=== PATIENT | male | born 1945 | race Caucasian/White ===

== ENCOUNTER 2025-01-11 21:24 | Inpatient (IN) | payer OTHER, MEDICARE ==
--- NOTE | 2025-01-11 22:00 | ED ---
General Adult HPI - General Chief complaint: Shortness of Breath Stated complaint: Chest Pain Time Seen by Provider: 01/11/25 21:34 Source: patient, EMS Mode of arrival: EMS Limitations: no limitations - History of Present Illness Initial comments: Patient is a 79-year-old male past medical history atrial fibrillation on Eliquis, COPD transferred from [facility] due to shortness of breath. He had presented there originally for 2 weeks of worsening short of breath, acutely worsening over the last 4 days. He endorses a cough productive of clear sputum without hemoptysis. He states he feels like this when he goes into atrial fibrillation however he does not feel palpitations or know when he is in A-fib. Patient had 5 episodes of dizziness today with near syncope which ultimately caused him to present to the ER. Patient denies any chest pain, fevers or chills. Endorses exertional dyspnea and chest congestion. Denies lower extremity swelling. Denies abdominal pain, nausea or vomiting. Endorses diarrhea and black tarry stools without gross blood in his stool. He does currently take Eliquis due to history of A-fib. He states he typically wears CPAP at night on 3 L oxygen however he states he is wearing this during the day due to persistent shortness of breath over the last 2 weeks. - Related Data Home Medications Medication Instructions Recorded Confirmed Albuterol Sulfate [Albuterol 2 puff INHALATION RT-QID PRN 01/12/25 01/12/25 Sulfate Hfa] Apixaban [Eliquis] 5 mg PO BID 01/12/25 01/12/25 Ascorbic Acid [Vitamin C] 500 mg PO BID 01/12/25 01/12/25 Atorvastatin [Lipitor] 40 mg PO DAILY 01/12/25 01/12/25 Cyanocobalamin (Vitamin B-12) 1,000 mcg PO DAILY 01/12/25 01/12/25 [Vitamin B-12] Diclofenac Sodium [Diclofenac 2 gm TOPICAL QID 01/12/25 01/12/25 Sodium 1%] Docusate [Colace] 100 mg PO DAILY 01/12/25 01/12/25 Losartan [Cozaar] 50 mg PO DAILY 01/12/25 01/12/25 Mometasone/Formoterol [Dulera 100 2 puff INHALATION RT-BID 01/12/25 01/12/25 Mcg-5 Mcg Inhaler] Pantoprazole [Protonix] 40 mg PO BID 01/12/25 01/12/25 Propylene Glycol/Peg 400/Pf 1 drop BOTH EYES BID 01/12/25 01/12/25 [Systane 0.3-0.4% Ophth Dropperette] Sildenafil Citrate [Viagra] 100 mg PO DAILY PRN 01/12/25 01/12/25 Tiotropium 2.5 Mcg/Puff [Spiriva 2 puff INHALATION RT-DAILY 01/12/25 01/12/25 Respimat 2.5 Mcg] Triamcinolone 0.025% Cream 1 applic TOPICAL DAILY PRN 01/12/25 01/12/25 [Kenalog 0.025% Cream] cilostazoL [Pletal] 100 mg PO BID 01/12/25 01/12/25 dilTIAZem HCL 30 mg PO BID 01/12/25 01/12/25 guaiFENesin 400 mg PO BID PRN 01/12/25 01/12/25 Previous Rx's Medication Instructions Recorded Metoprolol Tartrate [Lopressor] 50 mg PO BID #60 tab 01/15/25 Allergies Allergy/AdvReac Type Severity Reaction Status Date / Time [id number] Reductase Allergy Nausea & Verified 01/12/25 09:41 Inhibitor Vomiting shellfish derived [Shellfish] AdvReac Anaphylaxis Verified 01/12/25 09:41 Review of Systems ROS Statement: Those systems with pertinent positive or pertinent negative responses have been documented in the HPI. ROS Other: All systems not noted in ROS Statement are negative. Past Medical History Past Medical History: Atrial Fibrillation, Cancer, COPD, Hyperlipidemia, Hypertension Additional Past Medical History / Comment(s): PAD History of Any Multi-Drug Resistant Organisms: None Reported Additional Past Surgical History / Comment(s): Lobectomy 2010 Past Psychological History: No Psychological Hx Reported Smoking Status: Former smoker Past Alcohol Use History: Occasional Past Drug Use History: None Reported General Exam - General Exam Comments Initial Comments: PE: CONSTITUTIONAL: No apparent distress, well appearing SKIN: Warm, dry, no jaundice, hives or petechiae EYES: Pupils are equally round, extraocular movements intact without nystagmus, clear conjunctiva, non-icteric sclera HENT: Normocephalic, atraumatic, moist mucus membranes, oropharynx clear without exudates NECK: , Full range of motion, normal appearance PULMONARY: Rhonchi in the left upper lung field otherwise clear to auscultation without wheezes, normal excursion, no accessory muscle use and no stridor CARDIOVASCULAR: Normal rate, irregularly irregular rate and rhythm, normal S1 and S2. No appreciated murmurs, rubs or gallops. Strong radial pulses with intact distal perfusion. No lower extremity edema GASTROINTESTINAL: Soft, active bowel sounds throughout, non-tender, non- distended, no palpable masses, no rebound or guarding. No hepatosplenomegaly rectal exam was performed with Tom patient care partner at bedside, showed no visible hemorrhoids or masses on AMBER MUSCULOSKELETAL: Extremities have no gross deformity, no edema, redness, or swelling. No calf swelling NEUROLOGIC:_a/o x 3, GCS 15, normal mentation and speech. Moves all extremities x 4 without motor or sensory deficit PSYCHIATRIC:_normal mood and affect, thought process is clear and linear Limitations: no limitations Course Vital Signs 01/11/25 01/11/25 01/12/25 21:36 23:08 01:00 Temperature 97.8 F Pulse Rate 133 H 81 74 Respiratory 17 18 18 Rate Blood Pressure 154/84 136/92 134/73 O2 Sat by Pulse 92 L 92 L 91 L Oximetry 01/12/25 01/12/25 01/12/25 02:02 03:14 03:26 Temperature Pulse Rate 67 73 78 Respiratory 17 Rate Blood Pressure 130/74 O2 Sat by Pulse 91 L Oximetry 01/12/25 01/12/25 01/12/25 06:00 07:36 09:21 Temperature Pulse Rate 101 H 88 96 Respiratory 17 22 22 Rate Blood Pressure 123/78 116/72 109/74 O2 Sat by Pulse 91 L 95 98 Oximetry 01/12/25 01/12/25 01/12/25 09:51 09:54 09:59 Temperature Pulse Rate 88 91 Respiratory Rate Blood Pressure O2 Sat by Pulse 98 Oximetry 01/12/25 01/12/25 01/12/25 14:40 15:45 15:57 Temperature Pulse Rate 79 70 79 Respiratory 18 Rate Blood Pressure 124/70 O2 Sat by Pulse 93 L Oximetry 01/12/25 01/12/25 01/12/25 16:00 17:00 18:00 Temperature Pulse Rate 100 100 100 Respiratory 18 18 18 Rate Blood Pressure 110/72 109/82 117/83 O2 Sat by Pulse 93 L 92 L 93 L Oximetry 01/12/25 01/12/25 19:00 20:48 Temperature Pulse Rate 86 86 Respiratory 18 18 Rate Blood Pressure 112/67 98/71 O2 Sat by Pulse 94 L 94 L Oximetry EKG Findings - EKG Comments: EKG Findings:: Atrial fibrillation, rate 80 bpm, intervals within acceptable limits, normal axis, no significant ST elevations or depressions, PVC present Medical Decision Making - Medical Decision Making Was pt. sent in by a medical professional or institution (, PA, ROAD MARKER, urgent care, hospital, or custodial...) When possible be specific @ -Transferred from [facility] Did you speak to anyone other than the patient for history (EMS, parent, family, police, friend...)? What history was obtained from this source @ -No Did you review nursing and triage notes (agree or disagree)? Why? @ -I reviewed and agree with nursing and triage notes- pt sent from [facility] for management a fib rvr Were old charts reviewed (outside hosp., previous admission, EMS record, old EKG, old radiological studies, urgent care reports/EKG's, custodial records)? Report findings @ -Medical records reviewed-Reviewed paperwork from transferring facility, patient received a 10 mg Cardizem bolus, 20 mg of potassium, 2 g magnesium, 1 do se of 4.5 mh Zosyn, and 10 mEq IV potassium. Reviewed EKG from transferring facility, showed patient in A-fib with RVR with heart rate 104 and PVCs patient's labs showed a leukocytosis white blood cell count 11.62, creatinine 1.08, potassium 3.3, magnesium 1.5, lactic of 1.4 BNP 1414 troponin 20.35, was a high-sensitivity troponin so was not considered elevated, CT angiogram of the chest did not show any PE, did note severe emphysema, pleural-based nodularity in the apex of the right lung measuring 3.5 x 1.7 x 1.6 cm, consolidation compressive atelectasis in the posterior aspect of the right lung with nodule with irregular margins, of left upper marked measuring left upper lobe measuring 1.7 x 1.3 x 1 power centimeters, ill-defined area of tree-in-bud type infiltration which may reflect acute pneumonitis in the left upper lobe, no pulmonary embolism Differential Diagnosis (chest pain, altered mental status, abdominal pain women, abdominal pain men, vaginal bleeding, weakness, fever, dyspnea, syncope, headache, dizziness, GI bleed, back pain, seizure, CVA, palpatations, mental health, musculoskeletal)? @Differential Dyspnea: Coronary syndrome, arrhythmia, tamponade, asthma, COPD, pulmonary embolism, pneumonia, pneumothorax, pulmonary effusion, anaphylaxis, diabetic ketoacidosis, flailed chest, pulmonary contusion, diaphragmatic rupture, anemia, neuromuscular, this is not meant to be an all-inclusive list. EKG interpreted by me (3pts min.). @ -As above X-rays interpreted by me (1pt min.). @ -None done CT interpreted by me (1pt min.). @ -None done U/S interpreted by me (1pt. min.). @ -None done What testing was considered but not performed or refused? (CT, X-rays, U/S, labs)? Why? @ -None What meds were considered but not given or refused? Why? @ additional weight based cardizem bolus was considered however pt's HR remained controlled on cardizem gtt Did you discuss the management of the patient with other professionals (professionals i.e. , PA, ROAD MARKER, lab, RT, psych nurse, social sciences research scientist, locket maker, teacher, structural engineering drafting officer, case making machine operator)? Give summary @ -No Was smoking cessation discussed for >3mins.? @ -No Was critical care preformed (if so, how long)? @ -No Were there social determinants of health that impacted care today? How? (Homelessness, low income, unemployed, alcoholism, drug addiction, transportation, low edu. Level, literacy, decrease access to med. care, residential, rehab)? @ -No Was there de-escalation of care discussed even if they declined (Discuss DNR or withdrawal of care, Hospice)? @ -No What co-morbidities impacted this encounter? (DM, HTN, Smoking, COPD, CAD, Cancer, CVA, ARF, Chemo, Hep., AIDS, mental health diagnosis, sleep apnea, morbi d obesity)? @Atrial fibrillation on Eliquis, COPD Was patient admitted / discharged? Hospital course, mention meds given and route, prescriptions, significant lab abnormalities, going to OR and other pertinent info. @Admission- 79-year-old gentleman presenting today as a transfer from [facility] for episodes of dizziness and shortness of breath, was found to be in intermittent A-fib RVR was given a Cardizem bolus and transferred here. On arrival patient's heart rate is between the 80s and 90s, rate is overall controlled though intermittently during conversation does briefly go into the 120s however this is not sustained. He is in A-fib. Pulse ox on room air was down to 88% with conversation. He is currently resting comfortably on 3 L oxygen nasal cannula. Of note this was not noted in transferring paperwork however patient has had a week of dark tarry stools. Hemoccult will be ordered. Rectal exam was performed and occult blood sent. I did review labs and imaging report from transferring facility, significant findings as noted above. Given patient's rate is overall controlled we will start him on Cardizem infusion. Will add Cardizem bolus if he has sustained episodes of tachycardia. Anticipate admission. Pt agreeable with POC. Occult blood negative, hgb wnl, troponin nonelevated Case discussed with Dr. Armenta, who kindly accepted pt for admission. Undiagnosed new problem with uncertain prognosis? @ -No Drug Therapy requiring intensive monitoring for toxicity (Heparin, Nitro, Insulin, Cardizem)? @ -No Were any procedures done? @ -No Diagnosis/symptom? COPD exacerbation, atrial fibrillation Acute, or Chronic, or Acute on Chronic? @acute Uncomplicated (without systemic symptoms) or Complicated (systemic symptoms)? @ -[complicated Side effects of treatment? @ -No Exacerbation, Progression, or Severe Exacerbation? @ -No Poses a threat to life or bodily function? How? (Chest pain, USA, SC, pneumonia, PE, COPD, DKA, ARF, appy, cholecystitis, CVA, Diverticulitis, Homicidal, Suicidal, threat to staff... and all critical care pts) @potentially - Lab Data Result diagrams: 01/15/25 05:02 01/15/25 05:02 Lab Results 01/11/25 01/11/25 01/11/25 Range/Units 22:10 22:43 22:43 WBC 10.19 H (4.50-10.00) 10*3/uL RBC 4.63 (4.40-5.60) 10*6/uL Hgb 13.9 (13.0-17.0) g/dL Hct 40.6 (39.6-50.0) % MCV 87.7 (80.0-97.0) fL MCH 30.0 (27.0-32.0) pg MCHC 34.2 (32.0-37.0) g/dL Plt Count 432 (140-440) 10*3/uL MPV 8.8 L (9.5-12.2) fL Immature Gran % (Auto) 1.8 % Neutrophils % 77.0 % Lymphocytes % 10.2 % Monocytes % 7.6 % Eosinophils % 3.1 % Basophils % 0.3 % Immature Gran # 0.18 H (0.00-0.04) 10*3/uL Neutrophils # 7.85 H (1.80-7.70) 10*3/uL Lymphocytes # 1.04 (0.90-5.00) 10*3/uL Monocytes # 0.77 (0.20-1.00) 10*3/uL Eosinophils # 0.32 (0.04-0.35) 10*3/uL Basophils # 0.03 (0.00-0.10) 10*3/uL PT 12.0 (10.0-12.5) sec INR 1.1 (<1.2) APTT 27.3 (22.0-30.0) sec Sodium (137-145) mmol/L Potassium (3.5-5.1) mmol/L Chloride (98-107) mmol/L Carbon Dioxide (22-30) mmol/L Anion Gap mmol/L BUN (9-20) mg/dL Creatinine (0.66-1.25) mg/dL Est GFR (CKD-EPI)AfAm (>60 ml/min/1.73 sqM) Est GFR (CKD-EPI)NonAf (>60 ml/min/1.73 sqM) Glucose (74-99) mg/dL Calcium (8.4-10.2) mg/dL Magnesium (1.6-2.3) mg/dL Total Bilirubin (0.2-1.3) mg/dL AST (17-59) U/L ALT (4-49) U/L Alkaline Phosphatase (38-126) U/L Troponin I (0.000-0.034) ng/mL NT-Pro-B Natriuret Pep pg/mL Total Protein (6.3-8.2) g/dL Albumin (3.5-5.0) g/dL Stool Occult Blood Negative (Negative) 01/11/25 01/11/25 Range/Units 22:43 22:43 WBC (4.50-10.00) 10*3/uL RBC (4.40-5.60) 10*6/uL Hgb (13.0-17.0) g/dL Hct (39.6-50.0) % MCV (80.0-97.0) fL MCH (27.0-32.0) pg MCHC (32.0-37.0) g/dL Plt Count (140-440) 10*3/uL MPV (9.5-12.2) fL Immature Gran % (Auto) % Neutrophils % % Lymphocytes % % Monocytes % % Eosinophils % % Basophils % % Immature Gran # (0.00-0.04) 10*3/uL Neutrophils # (1.80-7.70) 10*3/uL Lymphocytes # (0.90-5.00) 10*3/uL Monocytes # (0.20-1.00) 10*3/uL Eosinophils # (0.04-0.35) 10*3/uL Basophils # (0.00-0.10) 10*3/uL PT (10.0-12.5) sec INR (<1.2) APTT (22.0-30.0) sec Sodium 140 (137-145) mmol/L Potassium 3.7 (3.5-5.1) mmol/L Chloride 106 (98-107) mmol/L Carbon Dioxide 23 (22-30) mmol/L Anion Gap 11 mmol/L BUN 15 (9-20) mg/dL Creatinine 0.95 (0.66-1.25) mg/dL Est GFR (CKD-EPI)AfAm 89 (>60 ml/min/1.73 sqM) Est GFR (CKD-EPI)NonAf 77 (>60 ml/min/1.73 sqM) Glucose 87 (74-99) mg/dL Calcium 9.5 (8.4-10.2) mg/dL Magnesium 2.2 (1.6-2.3) mg/dL Total Bilirubin 0.6 (0.2-1.3) mg/dL AST 21 (17-59) U/L ALT 18 (4-49) U/L Alkaline Phosphatase 159 H (38-126) U/L Troponin I <0.012 (0.000-0.034) ng/mL NT-Pro-B Natriuret Pep 1160 pg/mL Total Protein 6.4 (6.3-8.2) g/dL Albumin 3.6 (3.5-5.0) g/dL Stool Occult Blood (Negative) Disposition Clinical Impression: Atrial fibrillation with rapid ventricular response, Acute on chronic hypoxic respiratory failure, Community acquired pneumonia Disposition: ADMITTED IP TO THIS HOSP Condition: Stable
[2025-01-11 22:49] LABS: Basophils # (A) 0.03 10*3/uL (0.00-0.10); Basophils % (A) 0.3 %; Eosinophils # (A) 0.32 10*3/uL (0.04-0.35); Eosinophils % (A) 3.1 %; HCT 40.6 % (39.6-50.0); HGB 13.9 g/dL (13.0-17.0); Lymphocytes # (A) 1.04 10*3/uL (0.90-5.00); Lymphocytes % (A) 10.2 %; MCHC 34.2 g/dL (32.0-37.0); MCV 87.7 fL (80.0-97.0); Mean Platelet Volume 8.8 fL (9.5-12.2); Monocytes # (A) 0.77 10*3/uL (0.20-1.00); Monocytes % (A) 7.6 %; Neutrophils # (A) 7.85 10*3/uL (1.80-7.70); Platelet Count 432 10*3/uL (140-440); RBC 4.63 10*6/uL (4.40-5.60); RDW 14.1 % (11.5-14.5); WBC 10.19 10*3/uL (4.50-10.00)
[2025-01-11 23:01] LABS: ALT 18 U/L (4-49); AST 21 U/L (17-59); African American GFR (CKD) 89 (>60 ml/min/1.73 sqM); Albumin 3.6 g/dL (3.5-5.0); Alkaline Phosphatase 159 U/L (38-126); Anion Gap 11 mmol/L; Blood Urea Nitrogen 15 mg/dL (9-20); Calcium 9.5 mg/dL (8.4-10.2); Carbon Dioxide 23 mmol/L (22-30); Chloride 106 mmol/L (98-107); Glucose 87 mg/dL (74-99); Magnesium 2.2 mg/dL (1.6-2.3); Non-African American GFR(CKD) 77 (>60 ml/min/1.73 sqM); Potassium 3.7 mmol/L (3.5-5.1); Sodium 140 mmol/L (137-145); Total Bilirubin 0.6 mg/dL (0.2-1.3); Total Protein 6.4 g/dL (6.3-8.2)
[2025-01-11] MEDS: DILTIAZEM 125 MG in DEXTROSE 5% IN WATER 100 ML IV SCH (23:03)
[2025-01-11 23:04] LABS: INR 1.1 (<1.2); Partial Thromboplastin Time 27.3 sec (22.0-30.0)
[2025-01-11 23:10] LABS: NT-Pro-B-Type Natriuretic Pept 1160 pg/mL
--- NOTE | 2025-01-12 01:43 | P.HPIM ---
History of Present Illness H&P Date: 01/12/25 Chief Complaint: SOB This is a 79-year-old male patient with a past medical history of A-fib and chronically anticoagulated on Eliquis, COPD, dyslipidemia and essential hyper tension who was transferred from [facility] for shortness of breath. Patient reports that he presented to [facility] due to recurrent episodes of " feeling like he is going to faint " with worsening shortness of breath. He reports that he was experiencing these episodes once every 2 to 3 weeks and now it is increasing in frequency. He was seen in the emergency room by cardiology who diuresed patient and his symptoms improved. However he returned back to the ER with worsening symptoms as these syncopal episodes tends to happen at rest and even when he walks. Denies having any fevers or chills but does report productive cough. Does report diarrhea but no blood in his stool. He does report black tarry stools. Patient reports that he usually wears CPAP and 3 L oxygen during the night but he has been using his oxygen throughout the day due to worsening shortness of breath. Upon arrival to the ED, patient was tachycardic with a heart rate of 133 and EKG was showing A-fib with RVR. Cardizem drip was started . CT of the chest from [facility] concerning for pneumonia. Labs done showing WBC of 10.19. Chemistry within normal limit. Stool occult was negative. Patient will be admitted for cardiology evaluation Past medical history : A-fib and chronically anticoagulated on Eliquis, COPD, dyslipidemia and essential hypertension , history of malignant neoplasm of the right bronchus Past surgical history: Tonsillectomy, appendectomy, bypass surgery Social history : Former tobacco use, no alcohol use and no illicit drug Review of system: Negative except for that mentioned in HPI PE: General: nontoxic, no distress, appears at stated age Derm: warm, dry, intact Head: atraumatic, normocephalic, symmetric Eyes: EOMI, anicteric sclera Mouth: no lip lesion, mucus membranes moist Cardiovascular: S1 S2 reg, no murmur, rubs, or gallops, irregular regular rhythm Lungs: Slightly tachypneic diffuse bilateral expiratory wheeze Abdominal: soft, non-tender to palpataion, no appreciable organomegaly Extremities: no gross muscle atrophy, no edema, no contractures Neuro: Alert, Oriented, CNII-XII grossly intact, gait normal Assessment and plan : -Acute hypoxic respiratory failure due to community-acquired pneumonia and COPD exacerbation : CTA of the chest that was done at [facility] showing severe emphysema with nodular consolidation along the pleura at the apex. Right lung measuring 3.5 x 1.7 x 1.6 cm and a nodule with irregular margins at the anterior medial left upper lobe concerning for malignancy. Tree-in-bud type opacity in the left upper lobe concerning for pneumonia Continue with Rocephin and azithromycin Patient did not meet sepsis criteria COVID-19/RSV/influenza PCR is pending Urine Legionella, pneumococcus and mycoplasma IgM Scheduled DuoNebs, IV Solu-Medrol and Pulmicort twice daily -Afib RVR : Continue with Cardizem drip Consult cardiology TSH and echocardiogram Continue with oral anticoagulation Will resume oral metoprolol tartrate 25 mg twice daily - Essential hypertension : Patient currently on Cardizem drip CODE STATUS is full code DVT prophylaxis on oral Eliquis Disposition : Will have PT evaluate patient when she is stable Patient will be admitted as inpatient for at least 2 midnight hospitalization. Risk of not admitting patient to inpatient will lead to respiratory arrest Time spent : 50 min Past Medical History Past Medical History: Atrial Fibrillation, Cancer, COPD, Hyperlipidemia, Hypertension Additional Past Medical History / Comment(s): PAD History of Any Multi-Drug Resistant Organisms: None Reported Additional Past Surgical History / Comment(s): Lobectomy 2010 Past Psychological History: No Psychological Hx Reported Smoking Status: Former smoker Past Alcohol Use History: Occasional Past Drug Use History: None Reported Medications and Allergies Allergies Allergy/AdvReac Type Severity Reaction Status Date / Time Axembli-WHK-KzP Reductase Allergy Nausea & Verified 01/11/25 21:42 Inhibitor Vomiting shellfish derived [Shellfish] AdvReac Anaphylaxis Verified 01/11/25 21:42 Physical Exam Vitals: Vital Signs Temp Pulse Resp BP Pulse Ox 01/11/25 23:08 81 18 136/92 92 L 01/11/25 21:36 97.8 F 133 H 17 154/84 92 L Intake and Output 01/11/25 01/11/25 01/12/25 14:59 22:59 06:59 Other: Weight 65.771 kg Results CBC & Chem 7: 01/11/25 22:43 01/11/25 22:43 Labs: Abnormal Lab Results - Last 24 Hours (Table) 01/11/25 01/11/25 Range/Units 22:43 22:43 WBC 10.19 H (4.50-10.00) 10*3/uL MPV 8.8 L (9.5-12.2) fL Immature Gran # 0.18 H (0.00-0.04) 10*3/uL Neutrophils # 7.85 H (1.80-7.70) 10*3/uL Alkaline Phosphatase 159 H (38-126) U/L
[2025-01-12] MEDS: FUROSEMIDE 10 MG/ML 4 ML VIAL IV STA (01:56)
[2025-01-12] MEDS: methylPREDNISolone SOD SUCCI 40 MG/ML 1 ML VIAL IV SCH (01:57)
[2025-01-12] MEDS: BUDESONIDE 0.5 MG/2 ML NEBU INHALATION STA (03:14)
[2025-01-12] MEDS: IPRATROPIUM-ALBUTEROL 3 ML NEB INHALATION SCH (03:14)
[2025-01-12 07:40] LABS: Magnesium 1.9 mg/dL (1.6-2.3); Phosphorus 3.4 mg/dL (2.5-4.5)
[2025-01-12 07:43] LABS: African American GFR (CKD) >90 (>60 ml/min/1.73 sqM); Anion Gap 11 mmol/L; Blood Urea Nitrogen 17 mg/dL (9-20); Calcium 9.9 mg/dL (8.4-10.2); Carbon Dioxide 22 mmol/L (22-30); Chloride 107 mmol/L (98-107); Glucose 168 mg/dL (74-99); Non-African American GFR(CKD) 79 (>60 ml/min/1.73 sqM); Potassium 4.1 mmol/L (3.5-5.1); Sodium 140 mmol/L (137-145)
[2025-01-12] MEDS: METOPROLOL TARTRATE 25 MG TAB PO SCH (09:11)
[2025-01-12] MEDS: APIXABAN 5 MG TAB PO SCH (09:11)
[2025-01-12] MEDS: AZITHROMYCIN 500 MG in SODIUM CHLORIDE 0.9% 250 ML IVPB SCH (09:20)
[2025-01-12] MEDS ORDERED: guaiFENesin SYRUP 100MG/5ML 200 MG/10 ML CUP PO PRN (11:22)
[2025-01-12] MEDS ORDERED: ALBUTEROL NEBULIZED 2.5 MG/3 ML INHALATION PRN (11:22)
--- NOTE | 2025-01-12 11:43 | P.PN ---
Subjective Progress Note Date: 01/12/25 Hospital Course: This is a 79-year-old male patient with a past medical history of A-fib and ch ronically anticoagulated on Eliquis, chronic hypoxic respiratory failure COPD on home oxygen today 3L, dyslipidemia and essential hypertension history of right lung cancer status post lower lobectomy, follows with [facility] status post chemoradiation, known pulmonary nodule, who was transferred from [facility] for shortness of breath. Patient reports that he presented to [facility] due to recurrent episodes of " feeling like he is going to faint " with worsening shortness of breath. He reports that he was experiencing these episodes once every 2 to 3 weeks and now it is increasing in frequency. He was seen in the emergency room by cardiology who diuresed patient and his symptoms improved. However he returned back to the ER with worsening symptoms as these syncopal episodes tends to happen at rest and even when he walks. Denies having any fevers or chills but does report productive cough. Does report diarrhea but no blood in his stool. He does report black tarry stools. Patient reports that he usually wears CPAP and 3 L oxygen during the night but he has been using his oxygen throughout the day due to worsening shortness of breath. Upon arrival to the ED, patient was tachycardic with a heart rate of 133 and EKG was showing A- fib with RVR. Cardizem drip was started . CT of the chest from [facility] showed no evidence of PE, severe emphysema with a number of consolidation along the pleura at the apex of the right flank 3.5 x 1.7 x 1.6 cm and the nodule with irregular margins at the anterior medial left upper lobe measuring 1.7 x 1.3 x 1.4 cm, underlying malignancy cannot be excluded, tree-in-bud type opacity in the left upper lobe concerning for acute pneumonitis/developing pneumonia, dependent atelectasis of both lungs, nodule within the left adrenal gland measuring 2.3, abs done showing WBC of 10.19. Chemistry within normal limit. Stool occult was negative. Patient will be admitted for cardiology evaluation 01/12: Patient seen and examined at bedside in the ER, no acute events overnight. He states that his shortness of breath has improved, denies dizziness or lightheadedness at rest, no chest pain. He shared that he follows with [facility] for his history of lung cancer status post lobectomy, chemo and radiation, he has known left lung nodule and had reportedly negative PET scan a week ago with the follow-up in 3 months. He is maintained on 3 L nasal cannula satting at 98%, heart rate is in the 80s, normotensive. Morning BMP essentially unremarkable, TSH 0.57, troponin remains negative. I will discontinue patient's Cardizem drip and transition to oral home Cardizem 30 mg p.o. twice daily. Patient is not to appear to be in COPD exacerbation, thus, IV steroids discontinued, he will be continued on home inhalers. Pertinent positives and negatives as discussed above, a complete review of systems was performed and all other systems are negative. Vitals Signs Reviewed. General: Nontoxic, no distress, appears at stated age Derm: Warm, dry Head: Atraumatic, normocephalic, symmetric Eyes: EOMI, no lid lag, anicteric sclera Mouth: No lip lesion, mucus membranes moist Cardiovascular: [S1S2 irregular Lungs: CTA bilateral, no rhonchi, no rales, no accessory muscle use Abdominal: Soft, nontender to palpation, no guarding, no appreciable organomegaly Ext: No gross muscle atrophy, no edema, no contractures Neuro: CN II-XI grossly intact, no focal neuro deficits Psych: Alert, oriented, appropriate affect Assessment and Plan: Acute on chronic hypoxic respiratory failure secondary to community-acquired [facility] Chronic hypoxic respiratory failure secondary to advanced COPD on home oxygen 3 L, cardiac exacerbation History of right lung cancer s/p lobectomy, chemo and radiation therapy Known lung nodules, follows with oncology - Continue azithromycin 500 mg IV daily, ceftriaxone 1 g IV daily antibiotics SOT 01/12 - Continue albuterol inhaler 2 puffs 4 times daily as needed, DuoNeb every 6 hours as needed, Dulera 100/5 2 puffs twice daily, Breva 2.52 puff daily - Continue steroids, does not appear to be in COPD exacerbation A-fib with RVR likely in the settings of acute infection on home Eliquis Hypertension - Cardiology consulted, appreciate recommendations - Transition to home oral diltiazem 30 mg p.o. twice daily, continue with previously ordered metoprolol tartrate 25 mg p.o. twice daily -Continue home losartan 50 daily, - Continue telemetry - TTE ordered by admitting team, pending -Oxygen as tolerated PAD Hyperlipidemia -Continue home Lipitor 40 mg daily, cilostazol 100 mg p.o. twice daily DVT ppx: Eliquis Code status: Full code Anticipated discharge place: TBD Anticipated discharge time: TBD Objective - Vital Signs Vital signs: Vital Signs Temp 97.8 F 01/11/25 21:36 Pulse 91 01/12/25 09:59 Resp 22 01/12/25 09:21 BP 109/74 01/12/25 09:21 Pulse Ox 98 01/12/25 09:54 FiO2 Intake & Output 01/11/25 01/12/25 01/12/25 18:59 06:59 18:59 Weight 65.771 kg - Labs CBC & Chem 7: 01/11/25 22:43 01/12/25 06:59 Labs: Abnormal Lab Results - Last 24 Hours (Table) 01/11/25 01/11/25 01/12/25 Range/Units 22:43 22:43 06:59 WBC 10.19 H (4.50-10.00) 10*3/uL MPV 8.8 L (9.5-12.2) fL Immature Gran # 0.18 H (0.00-0.04) 10*3/uL Neutrophils # 7.85 H (1.80-7.70) 10*3/uL Glucose 168 H (74-99) mg/dL Alkaline Phosphatase 159 H (38-126) U/L
[2025-01-12] MEDS: DILTIAZEM ORAL 30 MG TAB PO SCH (11:49)
--- NOTE | 2025-01-12 11:49 | P.CRDCN ---
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 We have been asked to evaluate the patient for A-fib with RVR. Patient states that 3 weeks ago he started with shortness of breath. He initially went to the [facility] with complaints of shortness of breath that have been getting worse over the past 4 days. He has a cough wi th sputum production. Patient was found to be in A-fib with RVR. He denies palpitations, no chest pain, no chest pressure. He has been utilizing oxygen during the day when normally is only during the nighttime. Patient presented with a heart rate 133. Blood pressure 109/74, heart rate 96, pulse ox 98% on 3 L nasal cannula. At [facility] there was concern for sinus bradycardia with episodes of pauses. Patient has also had near syncopal episodes 5-6 episodes over the past 3 weeks or more. All EKGs were reviewed from [facility] and patient was noted to be in sinus rhythm with PACs. -EKG: Sinus rhythm with PACs -CTA of the chest performed at [facility] revealed no evidence of PE. Severe emphysema. Opacity in the left upper lobe. Independent atelectasis. -Laboratory studies: WBC 10.1, hemoglobin 13.9, electrolytes and renal function are normal. Troponin negative x 2. proBNP 1160. TSH 0.578. COVID not detected. Stool for occult blood negative. -Home cardiac medications: Eliquis 5 mg twice daily, atorvastatin 40 mg at bedtime, Pletal 100 mg twice daily, Cardizem 30 mg 2 times daily, losartan 50 mg daily, metoprolol succinate 50 mg daily. Review Of Systems: At the time of my exam: CONSTITUTIONAL: Denies fever or chills. HEENT: Denies blurred vision, vision changes, or eye pain. Denies hemoptysis CARDIOVASCULAR: Denies chest pain. Denies orthopnea. Denies PND. Denies palpitations RESPIRATORY: Reports shortness of breath. GASTROINTESTINAL: Denies abdominal pain. Denies nausea or vomiting. HEMATOLOGIC: Denies bleeding disorders. GENITOURINARY: Denies any blood in urine. SKIN: Denies puritis. Denies rash. Physical examination: Gen: This is a 79-year-old male in no acute distress VS: reviewed HEENT: Head is atraumatic, normocephalic. Pupils equal, round. Sclerae is anicteric. NECK: Supple. No JVD. LUNGS: Clear to auscultation. No wheezes or rhonchi. No intercostal retractions. HEART: Regular rate and rhythm. No murmur. ABDOMEN: Soft No tenderness. EXTREMITIES: No pedal edema. No calf tenderness. NEUROLOGICAL: Patient is awake, alert and oriented x3. Assessment: Near syncopal episodes Paroxysmal atrial fibrillation with RVR currently in sinus rhythm Acute hypoxic respiratory failure secondary to pneumonia Hypertension Hyperlipidemia PAD COPD Plan: Resume patient's home cardiac medications, no medication changes Continue nurse monitoring for bradycardia Obtain 2-D echocardiogram and Doppler study to assess cardiac structure and function Further recommendations to follow based upon clinical course At the time of discharge, patient will follow-up with his primary embroidery patternmaker in [place]. Thank you kindly for this consultation. Nurse practitioner note has been reviewed, I agree with documented findings and plan of care. Patient was seen and examined. Past Medical History Past Medical History: Atrial Fibrillation, Cancer, COPD, Hyperlipidemia, Hypertension Additional Past Medical History / Comment(s): PAD History of Any Multi-Drug Resistant Organisms: None Reported Additional Past Surgical History / Comment(s): Lobectomy 2010 Past Psychological History: No Psychological Hx Reported Smoking Status: Former smoker Past Alcohol Use History: Occasional Past Drug Use History: None Reported Medications and Allergies Home Medications Medication Instructions Recorded Confirmed Type Albuterol Sulfate [Albuterol 2 puff INHALATION RT-QID PRN 01/12/25 01/12/25 History Sulfate Hfa] Apixaban [Eliquis] 5 mg PO BID 01/12/25 01/12/25 History Ascorbic Acid [Vitamin C] 500 mg PO BID 01/12/25 01/12/25 History Atorvastatin [Lipitor] 40 mg PO DAILY 01/12/25 01/12/25 History Cyanocobalamin (Vitamin B-12) 1,000 mcg PO DAILY 01/12/25 01/12/25 History [Vitamin B-12] Diclofenac Sodium [Diclofenac 2 gm TOPICAL QID 01/12/25 01/12/25 History Sodium 1%] Docusate [Colace] 100 mg PO DAILY 01/12/25 01/12/25 History Losartan [Cozaar] 50 mg PO DAILY 01/12/25 01/12/25 History Metoprolol Succinate (ER) [Toprol 50 mg PO DAILY 01/12/25 01/12/25 History Xl] Mometasone/Formoterol [Dulera 100 2 puff INHALATION RT-BID 01/12/25 01/12/25 History Mcg-5 Mcg Inhaler] Pantoprazole [Protonix] 40 mg PO BID 01/12/25 01/12/25 History Propylene Glycol/Peg 400/Pf 1 drop BOTH EYES BID 01/12/25 01/12/25 History [Systane 0.3-0.4% Ophth Dropperette] Sildenafil Citrate [Viagra] 100 mg PO DAILY PRN 01/12/25 01/12/25 History Tiotropium 2.5 Mcg/Puff [Spiriva 2 puff INHALATION RT-DAILY 01/12/25 01/12/25 History Respimat 2.5 Mcg] Triamcinolone 0.025% Cream 1 applic TOPICAL DAILY PRN 01/12/25 01/12/25 History [Kenalog 0.025% Cream] cilostazoL [Pletal] 100 mg PO BID 01/12/25 01/12/25 History dilTIAZem HCL 30 mg PO BID 01/12/25 01/12/25 History guaiFENesin 400 mg PO BID PRN 01/12/25 01/12/25 History Allergies Allergy/AdvReac Type Severity Reaction Status Date / Time [id number] Reductase Allergy Nausea & Verified 01/12/25 09:41 Inhibitor Vomiting shellfish derived [Shellfish] AdvReac Anaphylaxis Verified 01/12/25 09:41 Physical Exam Vitals: Vital Signs Temp Pulse Resp BP Pulse Ox 01/12/25 07:36 88 22 116/72 95 01/12/25 06:00 101 H 17 123/78 91 L 01/12/25 03:26 78 01/12/25 03:14 73 01/12/25 02:02 67 17 130/74 91 L 01/12/25 01:00 74 18 134/73 91 L 01/11/25 23:08 81 18 136/92 92 L 01/11/25 21:36 97.8 F 133 H 17 154/84 92 L Intake and Output 01/11/25 01/12/25 01/12/25 22:59 06:59 14:59 Other: Weight 65.771 kg Results 01/11/25 22:43 01/12/25 06:59 Cardiac Enzymes 01/11/25 01/11/25 01/12/25 Range/Units 22:43 22:43 06:59 AST 21 (17-59) U/L Troponin I <0.012 <0.012 (0.000-0.034) ng/mL Coagulation 01/11/25 Range/Units 22:43 PT 12.0 (10.0-12.5) sec APTT 27.3 (22.0-30.0) sec CBC 01/11/25 Range/Units 22:43 WBC 10.19 H (4.50-10.00) 10*3/uL RBC 4.63 (4.40-5.60) 10*6/uL Hgb 13.9 (13.0-17.0) g/dL Hct 40.6 (39.6-50.0) % Plt Count 432 (140-440) 10*3/uL Comprehensive Metabolic Panel 01/11/25 01/12/25 Range/Units 22:43 06:59 Sodium 140 140 (137-145) mmol/L Potassium 3.7 4.1 (3.5-5.1) mmol/L Chloride 106 107 (98-107) mmol/L Carbon Dioxide 23 22 (22-30) mmol/L BUN 15 17 (9-20) mg/dL Creatinine 0.95 0.93 (0.66-1.25) mg/dL Glucose 87 168 H (74-99) mg/dL Calcium 9.5 9.9 (8.4-10.2) mg/dL AST 21 (17-59) U/L ALT 18 (4-49) U/L Alkaline Phosphatase 159 H (38-126) U/L Total Protein 6.4 (6.3-8.2) g/dL Albumin 3.6 (3.5-5.0) g/dL Current Medications Generic Name Dose Route Start Last Admin Trade Name Freq PRN Reason Stop Dose Admin Albuterol/Ipratropium 3 ml 01/12/25 01:45 01/12/25 03:14 Ipratropium-Albuterol 3 Ml Neb INHALATION 3 ml Q6HR KAILYN Administration Apixaban 5 mg 01/12/25 09:00 Apixaban 5 Mg Tab PO 02/11/25 08:59 BID KAILYN Taper Protocol Diltiazem HCl 125 mg/ Dextrose 125 mls @ 5 mls/hr 01/11/25 22:15 01/11/25 23:03 /Water IV 5 mg/hr .Q24H KAILYN 5 mls/hr Administration Protocol 5 MG/HR Ceftriaxone Sodium 1 gm/ 50 mls @ 100 mls/hr 01/12/25 09:00 Sodium Chloride IVPB DAILY KAILYN Protocol Azithromycin 500 mg/ Sodium 250 mls @ 250 mls/hr 01/12/25 09:00 Chloride IVPB 01/15/25 08:59 DAILY KAILYN Protocol Methylprednisolone Sodium Succinate 40 mg 01/12/25 01:45 01/12/25 01:57 Methylprednisolone Sod Succi 40 Mg/Ml 1 Ml Vial IV 40 mg BID KAILYN Administration Metoprolol Tartrate 25 mg 01/12/25 09:00 Metoprolol Tartrate 25 Mg Tab PO BID KAILYN Intake and Output 01/11/25 01/12/25 01/12/25 22:59 06:59 14:59 Other: Weight 65.771 kg 01/11/25 22:43 01/12/25 06:59
[2025-01-12] MEDS: PANTOPRAZOLE 40 MG TABLET PO SCH (16:50)
[2025-01-12] MEDS ORDERED: DILTIAZEM ORAL 30 MG TAB PO SCH (21:00)
[2025-01-12] MEDS: SYMBICORT 80-4.5 MCG INHALER INHALATION SCH (21:51)
[2025-01-12] MEDS: ARTIFICIAL TEARS-HYPROMELLOSE DROPS 15 ML BTL BOTH EYES SCH (22:16)
[2025-01-12] MEDS: cilostazoL 100 MG TAB PO SCH (22:16)
[2025-01-13 07:07] LABS: Basophils # (A) 0.05 10*3/uL (0.00-0.10); Basophils % (A) 0.2 %; Eosinophils # (A) 0.04 10*3/uL (0.04-0.35); Eosinophils % (A) 0.2 %; HCT 41.7 % (39.6-50.0); Lymphocytes # (A) 0.99 10*3/uL (0.90-5.00); Lymphocytes % (A) 4.3 %; MCH 29.7 pg (27.0-32.0); MCHC 33.6 g/dL (32.0-37.0); MCV 88.5 fL (80.0-97.0); Mean Platelet Volume 9.4 fL (9.5-12.2); Monocytes # (A) 1.27 10*3/uL (0.20-1.00); Monocytes % (A) 5.5 %; Neutrophils # (A) 20.33 10*3/uL (1.80-7.70); Neutrophils % (A) 88.8 %; Platelet Count 560 10*3/uL (140-440); RBC 4.71 10*6/uL (4.40-5.60); RDW 13.7 % (11.5-14.5); WBC 22.92 10*3/uL (4.50-10.00)
[2025-01-13 07:25] LABS: African American GFR (CKD) >90 (>60 ml/min/1.73 sqM); Anion Gap 11 mmol/L; Blood Urea Nitrogen 21 mg/dL (9-20); Calcium 10.5 mg/dL (8.4-10.2); Carbon Dioxide 24 mmol/L (22-30); Chloride 99 mmol/L (98-107); Glucose 140 mg/dL (74-99); Non-African American GFR(CKD) 82 (>60 ml/min/1.73 sqM); Sodium 134 mmol/L (137-145)
[2025-01-13] MEDS: CYANOCOBALAMIN 500 MCG TAB PO SCH (08:14)
[2025-01-13] MEDS: ATORVASTATIN 40 MG TAB PO SCH (08:14)
[2025-01-13] MEDS: DOCUSATE 100 MG CAP PO SCH (08:14)
[2025-01-13] MEDS: LOSARTAN 50 MG TAB PO SCH (08:14)
[2025-01-13] MEDS: TIOTROPIUM 2.5 MCG INHALER INHALATION SCH (08:24)
[2025-01-13] MEDS: CALCIUM CARBONATE 500 MG CHEWABLE PO PRN (10:33)
[2025-01-13] MEDS: IPRATROPIUM-ALBUTEROL 3 ML NEB INHALATION SCH (12:33)
--- NOTE | 2025-01-13 12:37 | P.PN ---
Subjective Progress Note Date: 01/13/25 Hospital Course: This is a 79-year-old male patient with a past medical history of A-fib and ch ronically anticoagulated on Eliquis, chronic hypoxic respiratory failure COPD on home oxygen today 3L, dyslipidemia and essential hypertension history of right lung cancer status post lower lobectomy, follows with [facility] status post chemoradiation, known pulmonary nodule, who was transferred from [facility] for shortness of breath. Patient reports that he presented to [facility] due to recurrent episodes of " feeling like he is going to faint " with worsening shortness of breath. He reports that he was experiencing these episodes once every 2 to 3 weeks and now it is increasing in frequency. He was seen in the emergency room by cardiology who diuresed patient and his symptoms improved. However he returned back to the ER with worsening symptoms as these syncopal episodes tends to happen at rest and even when he walks. Denies having any fevers or chills but does report productive cough. Does report diarrhea but no blood in his stool. He does report black tarry stools. Patient reports that he usually wears CPAP and 3 L oxygen during the night but he has been using his oxygen throughout the day due to worsening shortness of breath. Upon arrival to the ED, patient was tachycardic with a heart rate of 133 and EKG was showing A- fib with RVR. Cardizem drip was started . CT of the chest from [facility] showed no evidence of PE, severe emphysema with a number of consolidation along the pleura at the apex of the right flank 3.5 x 1.7 x 1.6 cm and the nodule with irregular margins at the anterior medial left upper lobe measuring 1.7 x 1.3 x 1.4 cm, underlying malignancy cannot be excluded, tree-in-bud type opacity in the left upper lobe concerning for acute pneumonitis/developing pneumonia, dependent atelectasis of both lungs, nodule within the left adrenal gland measuring 2.3, abs done showing WBC of 10.19. Chemistry within normal limit. Stool occult was negative. Patient will be admitted for cardiology evaluation he follows with [facility] for his history of lung cancer status post lobectomy, chemo and radiation, he has known left lung nodule and had reportedly negative PET scan a week ago with the follow-up in 3 months. He is maintained on 3 L nasal cannula satting at 98%, heart rate is in the 80s, normotensive. Heart rate improved, patient's Cardizem drip and transition to oral home Cardizem 30 mg p.o. twice daily. Patient is not to appear to be in COPD exacerbation, thus, IV steroids discontinued, he will be continued on home inhalers. 01/13/2025, seen and examined at bedside, states that he is breathing has improved, denies chest pain or palpitations. Is controlled, he is not febrile, he is satting well on home oxygen 2 to 3 L, he desats to 84% on room air with activity. His WBC bumped up today to 22.9, likely due to steroids he received previously, his procalcitonin is negative, kidney function remains normal, c alcium 10.5, sodium 134, will provide with some IV hydration and recheck blood work in the morning. TTE is pending Pertinent positives and negatives as discussed above, a complete review of systems was performed and all other systems are negative. Vitals Signs Reviewed. General: Nontoxic, no distress, appears at stated age Derm: Warm, dry Head: Atraumatic, normocephalic, symmetric Eyes: EOMI, no lid lag, anicteric sclera Mouth: No lip lesion, mucus membranes moist Cardiovascular: [S1S2 irregular Lungs: CTA bilateral, no rhonchi, no rales, no accessory muscle use Abdominal: Soft, nontender to palpation, no guarding, no appreciable organomegaly Ext: No gross muscle atrophy, no edema, no contractures Neuro: CN II-XI grossly intact, no focal neuro deficits Psych: Alert, oriented, appropriate affect Assessment and Plan: Acute on chronic hypoxic respiratory failure secondary to community-acquired pneumonia, possibly, procalcitonin negative Chronic hypoxic respiratory failure secondary to advanced COPD on home oxygen 3 L, cardiac exacerbation History of right lung cancer s/p lobectomy, chemo and radiation therapy Known lung nodules, follows with oncology Leukocytosis, worsening, possible steroid-induced - Continue azithromycin 500 mg IV daily, discontinue ceftriaxone 1 g IV daily antibiotics SOT 01/12 - Continue albuterol inhaler 2 puffs 3 times daily as needed, DuoNeb every 6 hours as needed, Dulera 100/5 2 puffs twice daily, Breva 2.52 puff daily - Discussed with RN, patient will be provided symptoms for Acid reflux, DuoNebs decreased to 3 times a day A-fib with RVR likely in the settings of acute infection on home Eliquis Hypertension - Cardiology consulted, appreciate recommendations - Transition to home oral diltiazem 30 mg p.o. twice daily, continue with previ ously ordered metoprolol tartrate 25 mg p.o. twice daily -Continue home losartan 50 daily, - Continue telemetry - TTE ordered , pending Hypercalcemia Hyponatremia -Provide NS at 75 cc/h, repeat BMP in the morning PAD Hyperlipidemia -Continue home Lipitor 40 mg daily, cilostazol 100 mg p.o. twice daily DVT ppx: Eliquis Code status: Full code Anticipated discharge place: TBD Anticipated discharge time: 24 hours Objective - Vital Signs Vital signs: Vital Signs Temp 97.3 F L 01/13/25 11:44 Pulse 80 01/13/25 12:33 Resp 18 01/13/25 11:44 BP 105/55 01/13/25 11:44 Pulse Ox 94 L 01/13/25 11:44 FiO2 Intake & Output 01/12/25 01/13/25 01/13/25 18:59 06:59 18:59 Intake Total 490 544 Output Total 560 300 Balance -70 244 Weight 66 kg Intake: IV 10 8 Invasive Line 1 10 8 Intake, IV Titration 300 Amount Azithromycin 500 mg In 250 Sodium Chloride 0.9% 250 ml @ 250 mls/hr IVPB DAILY KAILYN Rx#:[id number] cefTRIAXone 1 gm In 50 Sodium Chloride 0.9% 50 ml @ 100 mls/hr IVPB DAILY KAILYN Rx#:[id number] Oral 480 236 Output: Urine 560 300 Other: Voiding Method Urinal Urinal # Voids 1 1 # Bowel Movements 1 - Labs CBC & Chem 7: 01/13/25 05:34 01/13/25 05:34 Labs: Abnormal Lab Results - Last 24 Hours (Table) 01/13/25 01/13/25 Range/Units 05:34 05:34 WBC 22.92 H (4.50-10.00) 10*3/uL Plt Count 560 H (140-440) 10*3/uL MPV 9.4 L (9.5-12.2) fL Immature Gran # 0.24 H (0.00-0.04) 10*3/uL Neutrophils # 20.33 H (1.80-7.70) 10*3/uL Monocytes # 1.27 H (0.20-1.00) 10*3/uL Sodium 134 L (137-145) mmol/L BUN 21 H (9-20) mg/dL Glucose 140 H (74-99) mg/dL Calcium 10.5 H (8.4-10.2) mg/dL
[2025-01-13] MEDS: SODIUM CHLORIDE 0.9% 1,000 ML IV SCH (14:08)
--- NOTE | 2025-01-13 17:13 | P.PN ---
Subjective Progress Note Date: 01/13/25 This is 79-year-old male follows with a fire observer in [place] with past medical history of atrial fibrillation, hypertension, hyperlipidemia, PAD, COPD, obstructive sleep apnea on CPAP. We have been asked to evaluate the patient for A-fib with RVR. Patient states that 3 weeks ago he started with shortness of breath. He initially went to the [facility] with complaints of shortness of breath that have been getting worse over the past 4 days. He has a cough with sputum production. Patient was found to be in A-fib with RVR. He denies palpitations, no chest pain, no chest pressure. He has been utilizing oxygen during the day when normally is only during the nighttime. Patient presented with a heart rate 133. Blood pressure 109/74, heart rate 96, pulse ox 98% on 3 L nasal cannula. At [facility] there was concern for sinus bradycardia with episodes of pauses. Patient has also had near syncopal episodes 5-6 episodes over the past 3 weeks or more. All EKGs were reviewed from [facility] and patient was noted to be in sinus rhythm with PACs. -EKG: Sinus rhythm with PACs -CTA of the chest performed at [facility] revealed no evidence of PE. Severe emphysema. Opacity in the left upper lobe. Independent atelectasis. -Laboratory studies: WBC 10.1, hemoglobin 13.9, electrolytes and renal function are normal. Troponin negative x 2. proBNP 1160. TSH 0.578. COVID not detected. Stool for occult blood negative. -Home cardiac medications: Eliquis 5 mg twice daily, atorvastatin 40 mg at bedtime, Pletal 100 mg twice daily, Cardizem 30 mg 2 times daily, losartan 50 mg daily, metoprolol succinate 50 mg daily. Progress note 01/13/2025 Telemetry shows sinus rhythm with frequent PACs. BP 108/48, orthostatic vital signs were nonrevealing, TSH 0.5, NT-proBNP 1160, Physical examination: Gen: This is a 79-year-old male in no acute distress VS: reviewed HEENT: Head is atraumatic, normocephalic. Pupils equal, round. Sclerae is anicteric. NECK: Supple. No JVD. LUNGS: Clear to auscultation. No wheezes or rhonchi. No intercostal retractions. HEART: Regular rate and rhythm. No murmur. ABDOMEN: Soft No tenderness. EXTREMITIES: No pedal edema. No calf tenderness. NEUROLOGICAL: Patient is awake, alert and oriented x3. Assessment: Near syncopal episodes Paroxysmal atrial fibrillation with RVR currently in sinus rhythm. Prior history of A-fib ablation 5 years ago at [facility] Acute hypoxic respiratory failure secondary to pneumonia Hypertension Hyperlipidemia PAD COPD Plan: Check for lipids and A1c Resume patient's home cardiac medications, no medication changes. Pain is managed on Cardizem 30 twice daily and metoprolol at the same time. No bradycardia noticed on telemetry monitoring during hospitalization. Patient's echo still pending. Echo department and shortstaffed will be performed on Wednesday. If echo is within normal limits patient can be cleared from cardiovascular standpoint. Consider 7-day extended Holter monitor to go home with At the time of discharge, patient will follow-up with his primary fire observer in [place]. Thank you kindly for this consultation. Objective - Vital Signs Vital signs: Vital Signs Temp 97.4 F L 01/13/25 15:52 Pulse 71 01/13/25 15:52 Resp 18 01/13/25 15:52 BP 108/48 01/13/25 15:52 Pulse Ox 93 L 01/13/25 15:52 FiO2 Intake & Output 01/12/25 01/13/25 01/13/25 18:59 06:59 18:59 Intake Total 490 1099 Output Total 560 750 Balance -70 349 Weight 66 kg Intake: IV 10 8 Invasive Line 1 10 8 Intake, IV Titration 675 Amount Azithromycin 500 mg In 250 Sodium Chloride 0.9% 250 ml @ 250 mls/hr IVPB DAILY KAILYN Rx#:[id number] Sodium Chloride 0.9% 1, 375 000 ml @ 75 mls/hr IV . [id number] KAILYN Rx#:[id number] cefTRIAXone 1 gm In 50 Sodium Chloride 0.9% 50 ml @ 100 mls/hr IVPB DAILY KAILYN Rx#:[id number] Oral 480 416 Output: Urine 560 750 Other: Voiding Method Urinal Urinal # Voids 1 1 # Bowel Movements 2 - Labs CBC & Chem 7: 01/13/25 05:34 01/13/25 05:34 Labs: Abnormal Lab Results - Last 24 Hours (Table) 01/13/25 01/13/25 Range/Units 05:34 05:34 WBC 22.92 H (4.50-10.00) 10*3/uL Plt Count 560 H (140-440) 10*3/uL MPV 9.4 L (9.5-12.2) fL Immature Gran # 0.24 H (0.00-0.04) 10*3/uL Neutrophils # 20.33 H (1.80-7.70) 10*3/uL Monocytes # 1.27 H (0.20-1.00) 10*3/uL Sodium 134 L (137-145) mmol/L BUN 21 H (9-20) mg/dL Glucose 140 H (74-99) mg/dL Calcium 10.5 H (8.4-10.2) mg/dL
[2025-01-14 07:22] LABS: Basophils # (A) 0.05 10*3/uL (0.00-0.10); Basophils % (A) 0.4 %; Eosinophils # (A) 0.29 10*3/uL (0.04-0.35); Eosinophils % (A) 2.4 %; HCT 40.6 % (39.6-50.0); HGB 13.6 g/dL (13.0-17.0); Lymphocytes # (A) 1.22 10*3/uL (0.90-5.00); Lymphocytes % (A) 10.1 %; MCH 30.1 pg (27.0-32.0); MCHC 33.5 g/dL (32.0-37.0); MCV 89.8 fL (80.0-97.0); Mean Platelet Volume 9.5 fL (9.5-12.2); Monocytes # (A) 1.05 10*3/uL (0.20-1.00); Monocytes % (A) 8.7 %; Neutrophils # (A) 9.22 10*3/uL (1.80-7.70); Neutrophils % (A) 76.7 %; Platelet Count 520 10*3/uL (140-440); RBC 4.52 10*6/uL (4.40-5.60); WBC 12.04 10*3/uL (4.50-10.00)
[2025-01-14 07:38] LABS: African American GFR (CKD) 77 (>60 ml/min/1.73 sqM); Anion Gap 10 mmol/L; Blood Urea Nitrogen 23 mg/dL (9-20); Calcium 10.3 mg/dL (8.4-10.2); Carbon Dioxide 24 mmol/L (22-30); Chloride 108 mmol/L (98-107); Glucose 105 mg/dL (74-99); Non-African American GFR(CKD) 67 (>60 ml/min/1.73 sqM); Potassium 4.2 mmol/L (3.5-5.1); Sodium 142 mmol/L (137-145)
--- NOTE | 2025-01-14 10:30 | P.PN ---
Subjective Progress Note Date: 01/14/25 Hospital Course: This is a 79-year-old male patient with a past medical history of A-fib and ch ronically anticoagulated on Eliquis, chronic hypoxic respiratory failure COPD on home oxygen today 3L, dyslipidemia and essential hypertension history of right lung cancer status post lower lobectomy, follows with [facility] status post chemoradiation, known pulmonary nodule, who was transferred from [facility] for shortness of breath. Patient reports that he presented to [facility] due to recurrent episodes of " feeling like he is going to faint " with worsening shortness of breath. He reports that he was experiencing these episodes once every 2 to 3 weeks and now it is increasing in frequency. He was seen in the emergency room by cardiology who diuresed patient and his symptoms improved. However he returned back to the ER with worsening symptoms as these syncopal episodes tends to happen at rest and even when he walks. Denies having any fevers or chills but does report productive cough. Does report diarrhea but no blood in his stool. He does report black tarry stools. Patient reports that he usually wears CPAP and 3 L oxygen during the night but he has been using his oxygen throughout the day due to worsening shortness of breath. Upon arrival to the ED, patient was tachycardic with a heart rate of 133 and EKG was showing A- fib with RVR. Cardizem drip was started . CT of the chest from [facility] showed no evidence of PE, severe emphysema with a number of consolidation along the pleura at the apex of the right flank 3.5 x 1.7 x 1.6 cm and the nodule with irregular margins at the anterior medial left upper lobe measuring 1.7 x 1.3 x 1.4 cm, underlying malignancy cannot be excluded, tree-in-bud type opacity in the left upper lobe concerning for acute pneumonitis/developing pneumonia, dependent atelectasis of both lungs, nodule within the left adrenal gland measuring 2.3, abs done showing WBC of 10.19. Chemistry within normal limit. Stool occult was negative. Patient will be admitted for cardiology evaluation he follows with [facility] for his history of lung cancer status post lobectomy, chemo and radiation, he has known left lung nodule and had reportedly negative PET scan a week ago with the follow-up in 3 months. He is maintained on 3 L nasal cannula satting at 98%, heart rate is in the 80s, normotensive. Heart rate improved, patient's Cardizem drip and transition to oral home Cardizem 30 mg p.o. twice daily. Patient is not to appear to be in COPD exacerbation, thus, IV steroids discontinued, he will be continued on home inhalers. 01/13/2025, seen and examined at bedside, states that he is breathing is at baseline, denies chest pain or palpitations. Heart rate is controlled, he is not febrile, he is satting well on home oxygen 2 to 3 L, His WBC down to 12.04, his procalcitonin is negative, kidney function remains normal, calcium 10.3, sodium improved to 142, will provide with some IV hydration and recheck blood work in the morning. TTE is pending, to be done on Wednesday, per cardiology, if echo is normal patient can be cleared for discharge and follow-up with primary ice cream vendor. 7 days extended Holter at discharge Pertinent positives and negatives as discussed above, a complete review of systems was performed and all other systems are negative. Vitals Signs Reviewed. General: Nontoxic, no distress, appears at stated age Derm: Warm, dry Head: Atraumatic, normocephalic, symmetric Eyes: EOMI, no lid lag, anicteric sclera Mouth: No lip lesion, mucus membranes moist Cardiovascular: [S1S2 irregular Lungs: CTA bilateral, no rhonchi, no rales, no accessory muscle use Abdominal: Soft, nontender to palpation, no guarding, no appreciable organomegaly Ext: No gross muscle atrophy, no edema, no contractures Neuro: CN II-XI grossly intact, no focal neuro deficits Psych: Alert, oriented, appropriate affect Assessment and Plan: Acute on chronic hypoxic respiratory failure likely due to A-fib with RVR, procalcitonin negative, Chronic hypoxic respiratory failure secondary to advanced COPD on home oxygen 3 L, not in acute exacerbation History of right lung cancer s/p lobectomy, chemo and radiation therapy Known lung nodules, follows with oncology Leukocytosis, improved - Discontinue antibiotics, procalcitonin negative, patient afebrile, WBC trending down, repeat CBC in the morning - Continue albuterol inhaler 2 puffs 3 times daily as needed, DuoNeb every 6 hours as needed, Dulera 100/5 2 puffs twice daily, Breva 2.52 puff daily - Patient's at bedside, discussed management and discharge plan A-fib with RVR likely in the settings of acute infection on home Eliquis Hypertension - Cardiology consulted, appreciate recommendations - Transition to home oral diltiazem 30 mg p.o. twice daily, continue with previously ordered metoprolol tartrate 25 mg p.o. twice daily -Continue home losartan 50 daily, - Continue telemetry - TTE ordered , pending Hypercalcemia Hyponatremia -Provide NS at 75 cc/h, repeat BMP in the morning PAD Hyperlipidemia -Continue home Lipitor 40 mg daily, cilostazol 100 mg p.o. twice daily DVT ppx: Eliquis Code status: Full code Anticipated discharge place: home Anticipated discharge time: 24 hours Objective - Vital Signs Vital signs: Vital Signs Temp 97.3 F L 01/14/25 08:15 Pulse 74 01/14/25 08:47 Resp 18 01/14/25 08:15 BP 128/76 01/14/25 08:15 Pulse Ox 96 01/14/25 08:37 FiO2 Intake & Output 01/13/25 01/14/25 01/14/25 18:59 06:59 18:59 Intake Total 1279 1140 180 Output Total 750 Balance 529 1140 180 Weight 63.7 kg Intake: IV 8 Invasive Line 1 8 Intake, IV Titration 675 Amount Azithromycin 500 mg In 250 Sodium Chloride 0.9% 250 ml @ 250 mls/hr IVPB DAILY KAILYN Rx#:[id number] Sodium Chloride 0.9% 1, 375 000 ml @ 75 mls/hr IV . [id number] KAILYN Rx#:[id number] cefTRIAXone 1 gm In 50 Sodium Chloride 0.9% 50 ml @ 100 mls/hr IVPB DAILY KAILYN Rx#:[id number] Oral 596 1140 180 Output: Urine 750 Other: Voiding Method Urinal Urinal Urinal # Voids 1 2 # Bowel Movements 2 - Labs CBC & Chem 7: 01/14/25 06:12 01/14/25 06:12 Labs: Abnormal Lab Results - Last 24 Hours (Table) 01/14/25 01/14/25 Range/Units 06:12 06:12 WBC 12.04 H (4.50-10.00) 10*3/uL Plt Count 520 H (140-440) 10*3/uL Immature Gran # 0.21 H (0.00-0.04) 10*3/uL Neutrophils # 9.22 H (1.80-7.70) 10*3/uL Monocytes # 1.05 H (0.20-1.00) 10*3/uL Chloride 108 H (98-107) mmol/L BUN 23 H (9-20) mg/dL Glucose 105 H (74-99) mg/dL Calcium 10.3 H (8.4-10.2) mg/dL
--- NOTE | 2025-01-14 16:40 | P.PN ---
Subjective Progress Note Date: 01/14/25 This is 79-year-old male follows with a customer service and sales consultant in [place] with past medical history of atrial fibrillation, hypertension, hyperlipidemia, PAD, COPD, obstructive sleep apnea on CPAP. We have been asked to evaluate the patient for A-fib with RVR. Patient states that 3 weeks ago he started with shortness of breath. He initially went to the [facility] with complaints of shortness of breath that have been getting worse over the past 4 days. He has a cough with sputum production. Patient was found to be in A-fib with RVR. He denies palpitations, no chest pain, no chest pressure. He has been utilizing oxygen during the day when normally is only during the nighttime. Patient presented with a heart rate 133. Blood pressure 109/74, heart rate 96, pulse ox 98% on 3 L nasal cannula. At [facility] there was concern for sinus bradycardia with episodes of pauses. Patient has also had near syncopal episodes 5-6 episodes over the past 3 weeks or more. All EKGs were reviewed from [facility] and patient was noted to be in sinus rhythm with PACs. -EKG: Sinus rhythm with PACs -CTA of the chest performed at [facility] revealed no evidence of PE. Severe emphysema. Opacity in the left upper lobe. Independent atelectasis. -Laboratory studies: WBC 10.1, hemoglobin 13.9, electrolytes and renal function are normal. Troponin negative x 2. proBNP 1160. TSH 0.578. COVID not detected. Stool for occult blood negative. -Home cardiac medications: Eliquis 5 mg twice daily, atorvastatin 40 mg at bedtime, Pletal 100 mg twice daily, Cardizem 30 mg 2 times daily, losartan 50 mg daily, metoprolol succinate 50 mg daily. Progress note 01/13/2025 Telemetry shows sinus rhythm with frequent PACs. BP 108/48, orthostatic vital signs were nonrevealing, TSH 0.5, NT-proBNP 1160, Physical examination: Gen: This is a 79-year-old male in no acute distress VS: reviewed HEENT: Head is atraumatic, normocephalic. Pupils equal, round. Sclerae is anicteric. NECK: Supple. No JVD. LUNGS: Clear to auscultation. No wheezes or rhonchi. No intercostal retractions. HEART: Regular rate and rhythm. No murmur. ABDOMEN: Soft No tenderness. EXTREMITIES: No pedal edema. No calf tenderness. NEUROLOGICAL: Patient is awake, alert and oriented x3. Assessment: Near syncopal episodes Paroxysmal atrial fibrillation with RVR currently in sinus rhythm. Prior history of A-fib ablation 5 years ago at [facility] Status post loop recorder placement Acute hypoxic respiratory failure secondary to pneumonia Hypertension Hyperlipidemia PAD COPD Pertinent cardiac testing TSH 0.5, NT-proBNP 1160 Plan: Interrogate loop recorder Patient's echo still pending. Echo department and shortstaffed will be performed on Wednesday. If echo is within normal limits patient can be cleared f rom cardiovascular standpoint. Resume patient's home cardiac medications, no medication changes. Patient is managed on Cardizem 30 twice daily and metoprolol at the same time. No bradycardia noticed on telemetry monitoring during hospitalization. At the time of discharge, patient will follow-up with his primary customer service and sales consultant Objective - Vital Signs Vital signs: Vital Signs Temp 97.4 F L 01/14/25 11:24 Pulse 69 01/14/25 11:24 Resp 18 01/14/25 11:24 BP 126/61 01/14/25 11:24 Pulse Ox 95 01/14/25 11:24 FiO2 Intake & Output 01/13/25 01/14/25 01/14/25 18:59 06:59 18:59 Intake Total 1279 1140 370 Output Total 750 Balance 529 1140 370 Weight 63.7 kg Intake: IV 8 10 Invasive Line 1 8 10 Intake, IV Titration 675 Amount Azithromycin 500 mg In 250 Sodium Chloride 0.9% 250 ml @ 250 mls/hr IVPB DAILY KAILYN Rx#:[id number] Sodium Chloride 0.9% 1, 375 000 ml @ 75 mls/hr IV . [id number] KAILYN Rx#:[id number] cefTRIAXone 1 gm In 50 Sodium Chloride 0.9% 50 ml @ 100 mls/hr IVPB DAILY KAILYN Rx#:[id number] Oral 596 1140 360 Output: Urine 750 Other: Voiding Method Urinal Urinal Urinal # Voids 1 2 1 # Bowel Movements 2 - Labs CBC & Chem 7: 01/14/25 06:12 01/14/25 06:12 Labs: Abnormal Lab Results - Last 24 Hours (Table) 01/14/25 01/14/25 Range/Units 06:12 06:12 WBC 12.04 H (4.50-10.00) 10*3/uL Plt Count 520 H (140-440) 10*3/uL Immature Gran # 0.21 H (0.00-0.04) 10*3/uL Neutrophils # 9.22 H (1.80-7.70) 10*3/uL Monocytes # 1.05 H (0.20-1.00) 10*3/uL Chloride 108 H (98-107) mmol/L BUN 23 H (9-20) mg/dL Glucose 105 H (74-99) mg/dL Calcium 10.3 H (8.4-10.2) mg/dL
[2025-01-15 04:08] LABS: Mycoplasma IgG Antibody (EIA) 1.1 INDEX (<=0.90); Mycoplasma IgM Antibody 0.31 INDEX (<=0.90)
[2025-01-15 05:54] LABS: Basophils # (A) 0.05 10*3/uL (0.00-0.10); Basophils % (A) 0.6 %; Eosinophils % (A) 4.5 %; HCT 40.4 % (39.6-50.0); HGB 13.2 g/dL (13.0-17.0); Lymphocytes # (A) 1.06 10*3/uL (0.90-5.00); Lymphocytes % (A) 11.9 %; MCH 29.2 pg (27.0-32.0); MCHC 32.7 g/dL (32.0-37.0); MCV 89.4 fL (80.0-97.0); Mean Platelet Volume 9.2 fL (9.5-12.2); Monocytes # (A) 0.86 10*3/uL (0.20-1.00); Monocytes % (A) 9.6 %; Neutrophils # (A) 6.35 10*3/uL (1.80-7.70); Neutrophils % (A) 70.9 %; Platelet Count 461 10*3/uL (140-440); RBC 4.52 10*6/uL (4.40-5.60); WBC 8.94 10*3/uL (4.50-10.00)
[2025-01-15 06:16] LABS: African American GFR (CKD) >90 (>60 ml/min/1.73 sqM); Anion Gap 10 mmol/L; Blood Urea Nitrogen 19 mg/dL (9-20); Calcium 10.3 mg/dL (8.4-10.2); Carbon Dioxide 23 mmol/L (22-30); Chloride 106 mmol/L (98-107); Glucose 118 mg/dL (74-99); Non-African American GFR(CKD) 84 (>60 ml/min/1.73 sqM); Potassium 4.3 mmol/L (3.5-5.1); Sodium 139 mmol/L (137-145)
[2025-01-15] MEDS: METOPROLOL TARTRATE 50 MG TAB PO SCH (08:47)
[2025-01-15 08:51] VITALS: RESP 16; TEMP 97.3
[2025-01-15 12:06] VITALS: BP 154/89
--- NOTE | 2025-01-15 12:06 | P.PN ---
Subjective HISTORY OF PRESENT ILLNESS: This is 79-year-old male follows with a spout liner in [place] with past medical history of atrial fibrillation, hypertension, hyperlipidemia, PAD, COPD, obstructive sleep apnea on CPAP. We have been asked to evaluate the patient for A-fib with RVR. Patient states that 3 weeks ago he started with shortness of breath. He initially went to the [facility] with complaints of shortness of breath that have been getting worse over the past 4 days. He has a cough with sputum production. Patient was found to be in A-fib with RVR. He denies palpitations, no chest pain, no chest pressure. He has been utilizing oxygen during the day when normally is only during the nighttime. Patient presented with a heart rate 133. Blood pressure 109/74, heart rate 96, pulse ox 98% on 3 L nasal cannula. At [facility] there was concern for sinus bradycardia with episodes of pauses. Patient has also had near syncopal episodes 5-6 episodes over the past 3 weeks or more. All EKGs were reviewed from [facility] and patient was noted to be in sinus rhythm with PACs. -EKG: Sinus rhythm with PACs -CTA of the chest performed at [facility] revealed no evidence of PE. Severe emphysema. Opacity in the left upper lobe. Independent atelectasis. -Laboratory studies: WBC 10.1, hemoglobin 13.9, electrolytes and renal function are normal. Troponin negative x 2. proBNP 1160. TSH 0.578. COVID not detected. Stool for occult blood negative. -Home cardiac medications: Eliquis 5 mg twice daily, atorvastatin 40 mg at bedtime, Pletal 100 mg twice daily, Cardizem 30 mg 2 times daily, losartan 50 mg daily, metoprolol succinate 50 mg daily. Progress note 01/13/2025 Telemetry shows sinus rhythm with frequent PACs. BP 108/48, orthostatic vital signs were nonrevealing, TSH 0.5, NT-proBNP 1160, 01/15/2025 Patient examined this morning at bedside. Patient currently denies chest pain or pressure. She denies shortness of breath. Telemetry reveals sinus mechanism. Loop recorder interrogated revealed episodes of atrial fibrillation noted. No significant arrhythmias, bradycardia, or pauses noted. Patient is currently maintaining sinus mechanism at the time of examination. PHYSICAL EXAM: VITAL SIGNS: Reviewed. GENERAL: Well-developed in no acute distress. NECK: Supple. No JVD or thyromegaly LUNGS: Respirations even and unlabored. Lungs essentially clear to auscultation bilaterally. HEART: Regular rate and rhythm. S1 and S2 heard. EXTREMITIES: Normal range of motion. No clubbing or cyanosis. Peripheral pulses intact. No lower extremity edema ASSESSMENT: Near syncopal episodes Paroxysmal atrial fibrillation with RVR currently in sinus rhythm. Prior history of A-fib ablation 5 years ago at [facility] Status post loop recorder placement Acute hypoxic respiratory failure secondary to pneumonia Hypertension Hyperlipidemia PAD COPD PLAN: Loop recorder interrogated revealed episodes of atrial fibrillation noted. No significant arrhythmias, bradycardia, or pauses noted. Increase metoprolol tartrate to 50 mg twice a day Dr. Lopez recommends eventual repeat afib ablation Patient to follow-up with her primary spout liner, Dr. Lozano No further inpatient recommendations from a cardiac standpoint We will sign off. Please reconsult if needed. Nurse practitioner note has been reviewed by physician. Signing provider agrees with the documented findings, assessment, and plan of care documented by EMERGENCY WORKER as a scribe. Objective - Vital Signs Vital signs: Vital Signs Temp 97.3 F L 01/15/25 08:00 Pulse 95 01/15/25 08:00 Resp 16 01/15/25 08:00 BP 129/61 01/15/25 08:00 Pulse Ox 91 L 01/15/25 08:00 FiO2 Intake & Output 01/14/25 01/15/25 01/15/25 18:59 06:59 18:59 Intake Total 550 10 Balance 550 10 Weight 63.1 kg Intake: IV 10 10 Invasive Line 1 10 10 Oral 540 Other: Voiding Method Urinal Toilet Toilet Urinal Urinal # Voids 1 1 - Labs CBC & Chem 7: 01/15/25 05:02 01/15/25 05:02 Labs: Abnormal Lab Results - Last 24 Hours (Table) 01/12/25 01/15/25 01/15/25 Range/Units 06:59 05:02 05:02 Plt Count 461 H (140-440) 10*3/uL MPV 9.2 L (9.5-12.2) fL Immature Gran # 0.22 H (0.00-0.04) 10*3/uL Eosinophils # 0.40 H (0.04-0.35) 10*3/uL Glucose 118 H (74-99) mg/dL Calcium 10.3 H (8.4-10.2) mg/dL Mycoplasma pneumon IgG 1.10 H (<=0.90) INDEX
[2025-01-15 12:56] VITALS: PULSE 84
--- NOTE | 2025-01-15 13:24 | P.DS ---
Providers Date of admission: 01/12/25 00:46 Expected date of discharge: 01/15/25 Attending physician: Jerrod Kimble MD Primary care physician: Physician Nonstaff Hospital Course: 79-year-old male patient with PMH of A-fib and chronically anticoagulated on Eliquis, chronic hypoxic respiratory failure COPD on home oxygen today 3L, dyslipidemia and essential hypertension history of right lung cancer status post lower lobectomy, follows with [facility] status post chemoradiation, known pulmonary nodule, who was transferred from [facility] for shortness of breath. Patient reports that he usually wears CPAP and 3 L oxygen during the night but he has been using his oxygen throughout the day due to worsening shortness of breath. Upon arrival to the ED, patient was tachycardic with a heart rate of 133 and EKG was showing A-fib with RVR. Cardizem drip was started. CTA of the chest that was done at [facility] showing severe emphysema with nodular consolidation along the pleura at the apex, right lung measuring 3.5 x 1.7 x 1.6 cm and a nodule with irregular margins at the anterior medial left upper lobe concerning for malignancy, Tree-in-bud type opacity in the left upper lobe concerning for pneumonia. Labs done showing WBC of 10.19. Chemistry within normal limit. Stool occult was negative. Patient was admitted for Cardiology evaluation. Apparently he follows with [facility] for his history of lung cancer status post lobectomy, chemo and radiation, he has a known left lung nodule and had reportedly negative PET scan a week ago with the follow-up in 3 months. Cardizem drip was transitioned to his home PO dose and Metoprolol was increased to 50 mg PO BID. Loop recorder was interrogated showing episodes of A-Fib. Pro-norah was negative and antibiotics were discontinued. 01/15 Patient was seen and examined. Feeling well. Breathing at baseline. HR in the 80s on telemetry. Discussed with Azra SANCHEZ, Echo shows EF 55-60% prelim, cleared for discharge. CBC and BMP significant for Plt 461, glu 118, Ca 10.3. Discharge Plan: Prescription for Metoprolol sent to pharmacy. Follow up with PCP within 1-2 days of discharge. Follow up with primary Appraiser within 1 week of discharge. Follow up with Oncology at the OR for further workup of findings seen on CTA chest. General: non toxic, no distress, appears at stated age Derm: warm, dry Head: atraumatic, normocephalic, symmetric Eyes: EOMI, no lid lag, anicteric sclera Mouth: no lip lesion, mucus membranes moist Cardiovascular: S1S2 irreg, no murmur Lungs: Decreased BS bilateral, no rhonchi, no rales , no accessory muscle use Ext: no gross muscle atrophy, no edema, no contractures Neuro: no focal neuro deficits Psych: Alert, oriented, appropriate affect Discharge Diagnosis: Acute on chronic hypoxic respiratory failure likely due to A-fib with RVR Chronic hypoxic respiratory failure secondary to advanced COPD on home oxygen 3 L History of right lung cancer s/p lobectomy, chemo and radiation therapy Known lung nodules following with oncology Hypertension HyperCa PAD HLD Resolved: Leukocytosis, HypoNa This complex discharge took 35 minutes to complete. Patient Condition at Discharge: Stable Plan - Discharge Summary Discharge Rx Participant: Yes New Discharge Prescriptions: New Metoprolol Tartrate [Lopressor] 50 mg PO BID #60 tab Continue Pantoprazole [Protonix] 40 mg PO BID Triamcinolone 0.025% Cream [Kenalog 0.025% Cream] 1 applic TOPICAL DAILY PRN PRN Reason: Skin Irritation Tiotropium 2.5 Mcg/Puff [Spiriva Respimat 2.5 Mcg] 2 puff INHALATION RT-DAILY Mometasone/Formoterol [Dulera 100 Mcg-5 Mcg Inhaler] 2 puff INHALATION RT-BID Albuterol Sulfate [Albuterol Sulfate Hfa] 2 puff INHALATION RT-QID PRN PRN Reason: Shortness Of Breath cilostazoL [Pletal] 100 mg PO BID Apixaban [Eliquis] 5 mg PO BID Cyanocobalamin (Vitamin B-12) [Vitamin B-12] 1,000 mcg PO DAILY Ascorbic Acid [Vitamin C] 500 mg PO BID Propylene Glycol/Peg 400/Pf [Systane 0.3-0.4% Ophth Dropperette] 1 drop BOTH EYES BID Diclofenac Sodium [Diclofenac Sodium 1%] 2 gm TOPICAL QID Sildenafil Citrate [Viagra] 100 mg PO DAILY PRN PRN Reason: E.D. guaiFENesin 400 mg PO BID PRN PRN Reason: Congestion Docusate [Colace] 100 mg PO DAILY Atorvastatin [Lipitor] 40 mg PO DAILY dilTIAZem HCL 30 mg PO BID Losartan [Cozaar] 50 mg PO DAILY Discontinued Metoprolol Succinate (ER) [Toprol Xl] 50 mg PO DAILY Discharge Medication List Albuterol Sulfate [Albuterol Sulfate Hfa] 2 puff INHALATION RT-QID PRN 01/12/25 [History] Apixaban [Eliquis] 5 mg PO BID 01/12/25 [History] Ascorbic Acid [Vitamin C] 500 mg PO BID 01/12/25 [History] Atorvastatin [Lipitor] 40 mg PO DAILY 01/12/25 [History] Cyanocobalamin (Vitamin B-12) [Vitamin B-12] 1,000 mcg PO DAILY 01/12/25 [History] Diclofenac Sodium [Diclofenac Sodium 1%] 2 gm TOPICAL QID 01/12/25 [History] Docusate [Colace] 100 mg PO DAILY 01/12/25 [History] Losartan [Cozaar] 50 mg PO DAILY 01/12/25 [History] Mometasone/Formoterol [Dulera 100 Mcg-5 Mcg Inhaler] 2 puff INHALATION RT-BID 01/12/25 [History] Pantoprazole [Protonix] 40 mg PO BID 01/12/25 [History] Propylene Glycol/Peg 400/Pf [Systane 0.3-0.4% Ophth Dropperette] 1 drop BOTH EYES BID 01/12/25 [History] Sildenafil Citrate [Viagra] 100 mg PO DAILY PRN 01/12/25 [History] Tiotropium 2.5 Mcg/Puff [Spiriva Respimat 2.5 Mcg] 2 puff INHALATION RT-DAILY 01/12/25 [History] Triamcinolone 0.025% Cream [Kenalog 0.025% Cream] 1 applic TOPICAL DAILY PRN 01/12/25 [History] cilostazoL [Pletal] 100 mg PO BID 01/12/25 [History] dilTIAZem HCL 30 mg PO BID 01/12/25 [History] guaiFENesin 400 mg PO BID PRN 01/12/25 [History] Metoprolol Tartrate [Lopressor] 50 mg PO BID #60 tab 01/15/25 [Rx] Follow up Appointment(s)/Referral(s): Jose Alberto Hopkins DO [STAFF PHYSICIAN] - 1 Week Nonstaff,Physician [Primary Care Provider] - 1-2 days
--- NOTE | 2025-01-16 10:45 | CA ---
Transthoracic Echo Report Name: Kota Acevedo Age: 79 Gender: M : 1945 Exam Date: 01/15/2025 12:10 Exam Location: [facility] Ht (in): 67 Wt (lb): 145 Ordering Physician: Jerrod Kimble MD Attending/Referring Phys: Wheel Alignment Technician Ijeoma Gunn RDCS Procedure CPT: Indications: afib rvr Cardiac Hx: Technical Quality: Fair Contrast 1: Total Dose (mL): Contrast 2: Total Dose (mL): MEASUREMENTS (Male / Female) Normal Values 2D ECHO LV Diastolic Diameter PLAX 4.0 cm 4.2 - 5.9 / 3.9 - 5.3 cm LV Systolic Diameter PLAX 2.5 cm IVS Diastolic Thickness 1.4 cm 0.6 - 1.0 / 0.6 - 0.9 cm LVPW Diastolic Thickness 1.2 cm 0.6 - 1.0 / 0.6 - 0.9 cm LV Relative Wall Thickness 0.7 RV Internal Dim ED PLAX 2.8 cm LVOT Diameter 2.0 cm LA Systolic Diameter LX 3.8 cm 3.0 - 4.0 / 2.7 - 3.8 cm LV Diastolic Volume MOD BP 71.5 cm??? 67 - 155 / 56 - 104 cm??? LV Systolic Volume MOD BP 38.2 cm??? 22 - 58 / 19 - 49 cm??? LV Ejection Fraction MOD BP 46.6 % >= 55 % LV Cardiac Index MOD BP 1602.3 cm???/min???m??? LV Diastolic Volume MOD 4C 73.3 cm??? LV Systolic Volume MOD 4C 32.2 cm??? LV Ejection Fraction MOD 4C 56.0 % LV Cardiac Index MOD 4C 1975.9 cm???/min???m??? LV Diastolic Length 4C 7.4 cm LV Systolic Length 4C 7.1 cm LV Diastolic Volume MOD 2C 68.2 cm??? LV Systolic Volume MOD 2C 45.7 cm??? LV Ejection Fraction MOD 2C 33.0 % LV Cardiac Index MOD 2C 1084.0 cm???/min???m??? LV Diastolic Length 2C 7.6 cm LV Systolic Length 2C 7.1 cm LA Volume 42.0 cm??? 18 - 58 / 22 - 52 cm??? LA Volume Index 23.8 cm???/m??? 16 - 28 cm???/m??? M-MODE Aortic Root Diameter MM 2.5 cm LA Systolic Diameter MM 3.8 cm LA Ao Ratio MM 1.5 AV Cusp Separation MM 2.0 cm DOPPLER MV Area PHT 2.4 cm??? Mitral E Point Velocity 53.4 cm/s Mitral A Point Velocity 99.5 cm/s Mitral E to A Ratio 0.5 MV Deceleration Time 316.5 ms TR Peak Velocity 268.3 cm/s TR Peak Gradient 28.8 mmHg FINDINGS Left Ventricle Left ventricular ejection fraction is estimated at 55-60%. Moderately increased septal wall thickness. Normal left ventricular systolic function with no obvious regional wall motion abnormalities. Right Ventricle Normal right ventricular size and function. Right ventricular systolic pressure within normal limits. Right Atrium Moderate right atrial dilatation. Left Atrium Moderate left atrial dilatation. Mitral Valve Mitral valve thickened. Mild mitral regurgitation. No mitral stenosis. Aortic Valve Trileaflet aortic valve. No aortic stenosis. Trace aortic regurgitation. Tricuspid Valve Structurally normal tricuspid valve. Mild tricuspid regurgitation. No tricuspid stenosis. Pulmonic Valve Structurally normal pulmonic valve. No pulmonic stenosis. Trace pulmonic regurgitation. Pericardium No pericardial or pleural effusion. Aorta Normal size aortic root and proximal ascending aorta. CONCLUSIONS Normal LV size and systolic function. Mild to moderate biatrial enlargement. Mild mitral and tricuspid regurgitation. No significant pulmonary hypertension. No pericardial effusion Previewed by: Dr. Patrizia Sandoval MD (Electronically Signed) Final Date: 16 January 2025 10:44
--- NOTE | 2025-01-17 11:58 | CDI ---
Documentation Clarification Form Date: 01/17/2025 11:41:00 AM From: Lia Escamilla Phone: Admit Date: 01/12/2025 12:46:00 AM Patient Name: Kota Acevedo Visit Number: [id number] Discharge Date: 01/15/2025 02:28:00 PM ATTENTION: The Clinical Documentation Specialists (CDI) and [facility] Coding Staff appreciate your assistance in clarifying documentation. Please respond to the clarification below the line at the bottom and electronically sign. The CDI & [facility] Coding staff will review the response and follow-up if needed. Please note: Queries are made part of the Legal Health Record. If you have any questions, please contact the author of this message via ITS. Doctor/Provider: Ramirez Porras Conflicting documentation has been found in the medical record. As attending physician, please provide clarification. Acute hypoxic respiratory failure secondary to pneumonia. H and P, ED note, Cardiac consult, PN's 01/12 - 01/15. Pneumonia diagnosis not carried to D[facility]. Per [facility] Acute on chronic hypoxic respiratory failure likely due to A-fib with RVR History/Risk Factors: COPD, emphysema, atrial fib on anticoagulants, History of lung cancer Rt lobectomy done Clinical Indicators: Productive cough, on home O2 and on CPAP at night, CT of chest at [facility] concerning for pneumonia/ Treatment: Zithromax and Rocephin Please clarify which diagnosis is most appropriate: [ x ] Acute on chronic respiratory failure due to pneumonia [ ] Acute on chronic respiratory failure due to atrial fib [ ] Pneumonia ruled out [ ] Other (please specify) [ ] Unable to determine MTDD
== END 2025-01-15 14:28 | disposition home or self-care (01) | DRG 193 ==
LOC: EC 21:24 → 3SCARD 01-12 00:46
PROVIDERS: ADMIT Student in an Organized Health Care Education/Training Program; ATTEND Student in an Organized Health Care Education/Training Program
DX: J18.9 Pneumonia, unspecified organism (principal); J96.21 Acute and chronic respiratory failure with hypoxia; J44.1 Chronic obstructive pulmonary disease with (acute) exacerbation; I10 Essential (primary) hypertension; I73.9 Peripheral vascular disease, unspecified; E87.1 Hypo-osmolality and hyponatremia; J98.11 Atelectasis; I48.0 Paroxysmal atrial fibrillation; J43.9 Emphysema, unspecified; E78.5 Hyperlipidemia, unspecified; E83.52 Hypercalcemia; Z79.01 Long term (current) use of anticoagulants; Z79.02 Long term (current) use of antithrombotics/antiplatelets; Z79.51 Long term (current) use of inhaled steroids; Z79.899 Other long term (current) drug therapy; Z85.118 Personal history of other malignant neoplasm of bronchus and lung; Z92.21 Personal history of antineoplastic chemotherapy; Z92.3 Personal history of irradiation; Z99.81 Dependence on supplemental oxygen; Z88.8 Allergy status to other drugs, medicaments and biological substances; Z87.891 Personal history of nicotine dependence; G47.33 Obstructive sleep apnea (adult) (pediatric); R91.1 Solitary pulmonary nodule; R19.5 Other fecal abnormalities
CPT/HCPCS: 36415; 80048; 80053; 82272; 83735; 83880; 84100; 84145; 84443; 84484; 85025; 85610; 85730; 86738; 87449; 87635; 93005; 93306; 94640; 94760; 96365; 96366; 96368; 96375; 96376; 99285